=== PATIENT | female | born 1965 | race Caucasian/White ===

== ENCOUNTER 2025-04-11 09:31 | Day surgery (SDC) | payer OTHER, SELFPAY ==
--- NOTE | 2025-04-11 | PATH_ITS ---
[facility] Accession Number: [id number] No. of containers..01 Tissue . 01 Material submitted: . colon - SIGMOID POLYPS . 01 Diagnosis: SIGMOID COLON POLYPS: Hyperplastic polyp x2. [facility] 04/16/2025 1145 Local . 01 Electronically signed: . Ta Corea MD, PhD, Pathologist NPI- [id number] . 01 Gross description: . Received in formalin, labeled with two identifiers and sigmoid polyps, are two puentes soft tissue fragments measuring 1.0 x 1.1 cm in greatest dimension. Submitted in cassette A1. ([id number]) /FRR 04/13/2025 1519 Local . 01 Pathologist provided ICD-10: K63.5 . 01 CPT . 002355 Specimen Comment: A courtesy copy of this report has been sent to [phone] Performed at: [address] [facility] [id number] MD Geovany Maldonado MD Phone: [phone]
[2025-04-11] MEDS: LACTATED RINGERS 1,000 ML 42 ML IV (10:11)
[2025-04-11 10:19] VITALS: BP 101/66; PULSE 74; RESP 16; TEMP 36.1
--- NOTE | 2025-04-11 10:20 | PM.HP.IH.1 ---
History of Present Illness History of Present Illness Date Patient Seen: 04/11/25 Time Patient Seen: 10:21 Chief complaint: Screening Colonoscopy Narrative: Poly is a 60-year-old woman who is here for colonoscopy. Her last colonoscopy was about 11 years ago and it may have been an incomplete colonoscopy. She was encouraged to have another one at 5 years but she did not. She has however been performing stool screening tests. No first-degree family members with colon cancer. Meds Home Medications and Allergies Home Medications ?Medication ?Instructions ?Recorded ?Confirmed ?Type peg 3350-electrolytes 236 240 ml PO Q10M #4,000 mL 03/04/25 Rx gram-22.74 gram-6.74 gram-5.86 gram solution (Golytely) atorvastatin 20 mg tablet 20 mg PO DAILY 04/11/25 04/11/25 History levothyroxine 112 mcg tablet 56 mcg PO DAILY 04/11/25 04/11/25 History methocarbamol 750 mg tablet 750 - 1,500 mg PO ONCE PM PRN 04/11/25 04/11/25 History muscle spasm valacyclovir 500 mg tablet 500 mg PO DAILY 04/11/25 04/11/25 History Allergies Allergy/AdvReac Type Severity Reaction Status Date / Time amoxicillin Allergy Severe Anaphylaxis Verified 04/11/25 10:04 Sulfa (Sulfonamide Allergy Severe Anaphylaxis Verified 04/11/25 10:04 Antibiotics) Exam Const General: No acute distress Assessment & Plan Assessment and plan (1) Colon cancer screening: Status: Acute Plan Colonoscopy Time-Based Coding :: [TOTAL MINUTES] spent with patient and on the chart (including review of chart, obtaining history, exam, reviewing outside data, placing orders, documenting exam and treatment plan, and counseling patient) on [DATE]. PROFEE Bulb Weeder Document charge(s): No
--- NOTE | 2025-04-11 11:15 | P.OP.COLON_ITS ---
Operative Date/Time/Diagnoses Date of procedure: 04/11/25 Time of procedure: 11:15 Pre-op diagnosis: Colon cancer screening Post-op diagnosis: same Procedure & Clinicians Study performed: Colonoscopy Same procedure(s) as scheduled: Yes Surgeon: Josh Slater Anesthesia Type: MAC +/- Procedure Notes Procedure in detail: Surgeon: Josh Slater MD Anesthesia: [facility] Procedure: The patient was brought to the endoscopy suite, placed in left lateral decubitus position. The patient was connected to monitoring devices. A time-out was performed. Sedation was administered. Once the patient was adequately sedated, a digital rectal exam was performed and was normal. The scope was then inserted and advanced to the cecum where the appendiceal orifice was identified and photographed. The scope was then slowly withdrawn over greater than 6 minutes. The mucosa was thoroughly inspected. There were 2 small polyps in the proximal sigmoid colon, each approximately 3 mm, both removed with a cold snare and sent together. The scope was retroflexed in the r ectum. No other abnormalities were found. The scope was straightened and removed. The patient was awakened and brought to recovery. Scope withdrawal time: 7 minutes Sedation time: 12 minutes EBL: 2 mL Findings: 2 small polyps in the sigmoid colon Post-procedure Disposition: PACU
[2025-04-11 11:16] VITALS: BP 95/52; PULSE 83; RESP 17; TEMP 36.6; O2SAT 97
[2025-04-11 11:20] VITALS: BP 101/58; PULSE 77; RESP 20; O2SAT 96
[2025-04-11 11:25] VITALS: BP 104/61; PULSE 73; RESP 18; TEMP 36.6; O2SAT 95
== END 2025-04-11 11:44 | disposition home or self-care (01) ==
PROVIDERS: PCP Physician Assistant; Referring Provider Surgery; Visit Provider Surgery
PROC: 0DJD8ZZ Inspection of Lower Intestinal Tract, Via Natural or Artificial Opening Endoscopic (ICD-10-PCS; CPT 45378; principal; 2025-04-11 11:00)
DX: Z12.11 Encounter for screening for malignant neoplasm of colon (principal); K63.5 Polyp of colon
CPT/HCPCS: 45385; J2704

== ENCOUNTER → 2025-07-30 14:03 | Outpatient (CLI) | payer OTHER, SELFPAY ==
--- NOTE | 2025-07-30 14:03 | DI.MG.S_ITS ---
MM screening mammo billateral implants: 07/30/2025. BI-RADS: 2 CLINICAL: 60-year old female for bilateral screening mammogram. Tyrer-Cuzick lifetime risk of 6.5%. Current reported family history of breast cancer: sister and maternal aunt. The patient reports testing negative for BRCA gene mutation. The patient has bilateral implants. PRIOR EXAMS: 07/18/24, 07/03/24, 06/28/23,06/08/22. MAMMOGRAPHY TECHNIQUE: 2D and 3D (tomosynthesis) digital mammographic views obtained, with additional images as needed for full coverage. Current study was also evaluated with a Computer Aided Detection (CAD) system. DENSITY B. There are scattered areas of fibroglandular density. IMPLANTS Breast implants present. MAMMOGRAPHY FINDINGS Bilateral: There are no suspicious masses, calcifications, or other findings in the breast. IMPRESSION: * No evidence of malignancy with benign findings. RECOMMENDATIONS Bilateral * Annual screening mammography. OVERALL ASSESSMENT CATEGORY BI-RADS-2: Benign. [employer] recommends annual screening mammography beginning at age 40 for women with average risk of breast cancer. ELECTRONICALLY SIGNED: Michael Cole M.D. on 07/31/2025 at 08:54:26 AM PT Interpreting Station ID: [id number]
== END ==
LOC: MAMMO 14:03
PROVIDERS: PCP Physician Assistant; Referring Provider Physician Assistant; Visit Provider Physician Assistant
DX: Z12.31 Encounter for screening mammogram for malignant neoplasm of breast (principal); Z98.82 Breast implant status; Z80.3 Family history of malignant neoplasm of breast
CPT/HCPCS: 77063; 77067